=== PATIENT | male | born 1965 | race Caucasian/White ===

== ENCOUNTER 2020-08-19 08:46 | Inpatient (IN) | payer BC ==
[~2020-08-19] VITALS: Ht 180.3 cm; Wt 106.3 kg
[2020-08-19] MEDS ORDERED: ALBUTEROL HFA 90 MCG/SPRAY INH PRN (13:30)
[2020-08-19] MEDS ORDERED: ACETAMINOPHEN 325 MG TABLET PO PRN (13:30)
[2020-08-19] MEDS ORDERED: ONDANSETRON 2MG/ML, 2ML IVPush PRN (13:30)
[2020-08-19] MEDS ORDERED: SENNA/DOCUSATE TABLET PO PRN (13:30)
[2020-08-19] MEDS ORDERED: ONDANSETRON ODT 4 MG PO PRN (13:30)
[2020-08-19] MEDS ORDERED: POLYETHYLENE GLYCOL 17 GM PACKET PO PRN (13:30)
[2020-08-19] MEDS ORDERED: CETIRIZINE 10 MG TABLET PO PRN (13:30)
[2020-08-19] MEDS ORDERED: PLEASE ENTER HEIGHT AND WEIGHT MC SCH (13:30)
[2020-08-19 13:50] LABS: BASOPHILS % (AUTO) 0 % (0-1); EOSINOPHILS % (AUTO) 0 % (1-7); LYMPHOCYTES % (AUTO) 6 % (22-44); MEAN PLATELET VOLUME 9.5 fL (7.4-10.4); MONOCYTES % (AUTO) 3 % (2-9); NEUTROPHILS % (AUTO) 90 % (42-75); PLATELET COUNT 209 x10^3/uL (130-400)
[2020-08-19 13:52] LABS: MD NO
[2020-08-19 13:55] LABS: ALBUMIN 3.9 g/dL (3.4-5.0); CALCIUM 9.1 mg/dL (8.5-10.1)
[2020-08-19 13:59] LABS: ALANINE AMINOTRANSFERASE 33 U/L (12-78); ALKALINE PHOSPHATASE 50 U/L (45-117); BILIRUBIN,TOTAL 0.7 mg/dL (0.2-1.0); TOTAL PROTEIN 7.3 g/dL (6.4-8.2)
[2020-08-19] MEDS ORDERED: HEPARIN 25,000 UNITS/250ML PMX 250 ML IV PRN (14:00)
[2020-08-19 14:03] LABS: ANION GAP 6 mmol/L (5-15); CHLORIDE 105 mmol/L (98-107)
[2020-08-19 14:20] VITALS: BP 115/79
[2020-08-19] MEDS: GABAPENTIN 100 MG CAPSULE PO SCH ×2 (17:11→20:16)
[2020-08-19] MEDS: CARVEDILOL 3.125 MG TABLET PO SCH (17:11)
[2020-08-19 19:05] VITALS: BP 122/80
[2020-08-19] MEDS: SIMVASTATIN 40 MG TABLET PO SCH (20:16)
[2020-08-19] MEDS: HEPARIN 5,000 UNITS/ML, 1ML IV PRN (20:41)
[2020-08-20 01:46] VITALS: BP 114/74
[2020-08-20 05:04] VITALS: BP 111/72
[2020-08-20] MEDS: CARVEDILOL 3.125 MG TABLET PO SCH ×2 (05:06→15:40)
[2020-08-20 05:41] LABS: BASOPHILS % (AUTO) 1 % (0-1); EOSINOPHILS % (AUTO) 1 % (1-7); LYMPHOCYTES % (AUTO) 20 % (22-44); MEAN CORPUSCULAR HEMOGLOBIN 32.3 pg (27.5-34.5); MEAN CORPUSCULAR HGB CONC 33.1 g/dL (33.2-36.2); MEAN PLATELET VOLUME 9.1 fL (7.4-10.4); MONOCYTES % (AUTO) 8 % (2-9); NEUTROPHILS % (AUTO) 70 % (42-75); PLATELET COUNT 190 x10^3/uL (130-400); RED BLOOD COUNT 5.29 x10^6/uL (4.38-5.82); RED CELL DISTRIBUTION WIDTH 13.8 % (9.4-14.8)
[2020-08-20 05:42] LABS: MD NO
[2020-08-20 06:35] LABS: CHLORIDE 106 mmol/L (98-107)
[2020-08-20 06:43] LABS: ALANINE AMINOTRANSFERASE 34 U/L (12-78); ALBUMIN 3.5 g/dL (3.4-5.0); ALKALINE PHOSPHATASE 46 U/L (45-117); ANION GAP 5 mmol/L (5-15); BILIRUBIN,TOTAL 0.7 mg/dL (0.2-1.0); CALCIUM 8.9 mg/dL (8.5-10.1); CREATININE 1.06 mg/dL (0.7-1.3); TOTAL PROTEIN 6.8 g/dL (6.4-8.2)
[2020-08-20 06:51] VITALS: BP 130/81
[2020-08-20] MEDS: POTASSIUM CHLORIDE 20 MEQ TAB.ER.PRT PO SCH (08:06)
[2020-08-20] MEDS: LOSARTAN 50MG TABLET PO SCH (08:09)
[2020-08-20] MEDS: GABAPENTIN 100 MG CAPSULE PO SCH ×3 (08:10→20:35)
[2020-08-20] MEDS: HEPARIN 5,000 UNITS/ML, 1ML IV PRN (09:56)
[2020-08-20] MEDS: SODIUM CHLORIDE 0.9% 1,000 ML IV SCH ×2 (10:30→21:00)
[2020-08-20] MEDS ORDERED: HEPARIN 1,000 UNITS/ML, 10ML ONE (12:34)
[2020-08-20] MEDS ORDERED: FENTANYL PF 100 MCG/2ML ONE (12:34)
[2020-08-20] MEDS ORDERED: VERAPAMIL 2.5 MG/ML, 2ML ONE (12:34)
[2020-08-20] MEDS ORDERED: MIDAZOLAM 1 MG/ML, 5ML ONE (12:34)
[2020-08-20] MEDS ORDERED: LIDOCAINE-MPF 1%, 5ML ONE (12:34)
[2020-08-20 14:35] VITALS: BP 127/87
[2020-08-20] MEDS: FUROSEMIDE 20 MG TABLET PO SCH (15:40)
[2020-08-20 19:18] VITALS: BP 104/66
[2020-08-20] MEDS: SIMVASTATIN 40 MG TABLET PO SCH (20:35)
[2020-08-20] MEDS: APIXABAN 5 MG TABLET PO SCH (20:35)
[2020-08-21 01:16] VITALS: BP 116/79
[2020-08-21 05:19] VITALS: BP 119/82
[2020-08-21] MEDS: CARVEDILOL 3.125 MG TABLET PO SCH ×2 (05:20→16:48)
[2020-08-21 06:06] LABS: CALCIUM 8.9 mg/dL (8.5-10.1); CREATININE 0.93 mg/dL (0.7-1.3)
[2020-08-21 06:15] LABS: ANION GAP 5 mmol/L (5-15); CHLORIDE 102 mmol/L (98-107)
[2020-08-21 08:08] VITALS: BP 109/74
[2020-08-21] MEDS: APIXABAN 5 MG TABLET PO SCH (08:55)
[2020-08-21] MEDS: LOSARTAN 50MG TABLET PO SCH (08:55)
[2020-08-21] MEDS: GABAPENTIN 100 MG CAPSULE PO SCH ×2 (08:55→16:48)
[2020-08-21] MEDS: POTASSIUM CHLORIDE 20 MEQ TAB.ER.PRT PO SCH (08:55)
[2020-08-21] MEDS: FUROSEMIDE 20 MG TABLET PO SCH (08:55)
[2020-08-21 11:15] LABS: CREATININE 0.86 mg/dL (0.7-1.3)
[2020-08-21 11:16] LABS: RED BLOOD COUNT 5.59 x10^6/uL (4.38-5.82)
[2020-08-21 11:17] LABS: MEAN CORPUSCULAR HEMOGLOBIN 32.1 pg (27.5-34.5); MEAN CORPUSCULAR HGB CONC 33.1 g/dL (33.2-36.2); RED CELL DISTRIBUTION WIDTH 13.9 % (9.4-14.8)
[2020-08-21] MEDS ORDERED: SIMV40TA20 PO (12:40)
[2020-08-21] MEDS ORDERED: FURO20TA3 PO (12:40)
[2020-08-21] MEDS ORDERED: GABA-826 PO (12:40)
[2020-08-21] MEDS ORDERED: CARV3.1212 PO (12:40)
[2020-08-21] MEDS ORDERED: LOSA50TA2 PO (12:40)
[2020-08-21] MEDS ORDERED: POTA20TA6 PO (12:40)
[2020-08-21] MEDS ORDERED: APIX5TAB PO (12:40)
[2020-08-21 12:47] VITALS: BP 118/74
[2020-08-21 16:47] VITALS: BP 105/77
== END 2020-08-21 20:31 | disposition home or self-care (01) | DRG 286 ==
LOC: EDSEX 12:40 → 5SO 12:40
PROVIDERS: ADMIT Internal Medicine Cardiovascular Disease; ATTEND Family Medicine
PROC: 4A023N8 Measurement of Cardiac Sampling and Pressure, Bilateral, Percutaneous Approach (ICD-10-PCS; principal; 2020-08-20)
PROC: B2111ZZ Fluoroscopy of Multiple Coronary Arteries using Low Osmolar Contrast (ICD-10-PCS; 2020-08-20)
PROC: B2151ZZ Fluoroscopy of Left Heart using Low Osmolar Contrast (ICD-10-PCS; 2020-08-20)
DX: I11.0 Hypertensive heart disease with heart failure (principal); J96.01 Acute respiratory failure with hypoxia; I50.33 Acute on chronic diastolic (congestive) heart failure; I27.20 Pulmonary hypertension, unspecified; D75.1 Secondary polycythemia; J44.9 Chronic obstructive pulmonary disease, unspecified; Z86.711 Personal history of pulmonary embolism; Z87.891 Personal history of nicotine dependence; Z79.899 Other long term (current) drug therapy
CPT/HCPCS: 36415; 80048; 80053; 85025; 85520; 93460; 99156; 99157; C1769; C1894; G0378; J1644; J2250; J3010; J7030; Q9967